=== PATIENT | male | born 1950 | race Hispanic/Latino ===

== ENCOUNTER → 2017-12-28 | Outpatient (CLI) | payer OTHER ==
[~2017-12-28] MED LIST: AEC81 PO; ATOR10 PO; CLON0.5T12 PO; FURO20TA4 PO; INSU100C6 SQ; INSU100V12 SQ; ISOS30TA6 PO; LABE200T5 PO; MENTANX PO; METF10004 PO; PREG50 PO; VALS1TAB79 PO; VITA-328 PO; [UNRECOGNIZED DRUG - REMARK]
== END | disposition home or self-care (01) ==
LOC: SHCH 09:33
PROVIDERS: ATTEND Internal Medicine Cardiovascular Disease
DX: I65.21 Occlusion and stenosis of right carotid artery (principal)
CPT/HCPCS: 93880

== ENCOUNTER → 2022-09-18 | Outpatient (CLI) | payer MEDICARE ==
[~2022-09-18] MED LIST changes: -CLON0.5T12 PO; +CLON0.5T4 PO; -ISOS30TA6 PO; +ISOS30TA92 PO; -LABE200T5 PO; +LABE200T7 PO; +METF-446 PO; -METF10004 PO; -VALS1TAB79 PO; +VALS1TAB80 PO
== END | disposition home or self-care (01) ==
LOC: RAH 12:51
PROVIDERS: ATTEND Family Medicine
DX: S40.011A Contusion of right shoulder, initial encounter (principal); W01.0XXA Fall on same level from slipping, tripping and stumbling without subsequent striking against object, initial encounter
CPT/HCPCS: 73030; 73060

== ENCOUNTER → 2023-01-05 | Outpatient (CLI) | payer MEDICARE ==
[~2023-01-05] MED LIST changes: +REGADENOSON 0.4 MG/5 ML PF SYG IVP ONE
== END | disposition home or self-care (01) ==
LOC: SHCH 07:54
PROVIDERS: ATTEND Internal Medicine Cardiovascular Disease
DX: R94.39 Abnormal result of other cardiovascular function study (principal); I49.1 Atrial premature depolarization; I25.10 Atherosclerotic heart disease of native coronary artery without angina pectoris; I65.21 Occlusion and stenosis of right carotid artery; I10 Essential (primary) hypertension; E78.2 Mixed hyperlipidemia; Z79.82 Long term (current) use of aspirin; Z79.899 Other long term (current) drug therapy
CPT/HCPCS: 78452; 96374; 93017; J2785; A9500 ×2

== ENCOUNTER → 2024-04-06 | Outpatient (CLI) | payer MEDICARE ==
[~2024-04-06] MED LIST changes: -REGADENOSON 0.4 MG/5 ML PF SYG IVP ONE
== END | disposition home or self-care (01) ==
LOC: SHCH 12:22
PROVIDERS: ATTEND Internal Medicine Cardiovascular Disease
DX: I65.21 Occlusion and stenosis of right carotid artery (principal)
CPT/HCPCS: 93880

== ENCOUNTER → 2024-07-14 | Outpatient (CLI) | payer MEDICARE ==
--- NOTE | 2024-07-14 14:42 | HMCIMG ---
SHOULDER COMP 2+VWS RT REASON: RIGHT SHOULDER PAIN TECHNIQUE: 2 views were obtained. FINDINGS: There is no evidence of fracture or dislocation. There is mild AC joint degenerative changes evidenced by narrowing. There is some loss of glenohumeral joint space is well. The soft tissues appear unremarkable. There is no evidence of a radiopaque foreign body. IMPRESSION: 1. Mild degenerative changes, no acute finding.
== END | disposition home or self-care (01) ==
LOC: RAH 13:13
PROVIDERS: ATTEND Physician Assistant
DX: M19.011 Primary osteoarthritis, right shoulder (principal); M25.511 Pain in right shoulder
CPT/HCPCS: 73030

== ENCOUNTER → 2024-08-08 | Outpatient (CLI) | payer MEDICARE ==
--- NOTE | 2024-08-08 14:17 | HMCIMG ---
MR SHOULDER RIGHT WO REASON: PAIN COMPARISON: None TECHNIQUE: Routine imaging protocol was performed in the axial, oblique sagittal and oblique coronal plane with T1, proton density, T2 and gradient recalled sequences. FINDINGS: There is a full-thickness tear of the supraspinatus portion of the rotator cuff. Proximal and distal fragments are by 2 cm. There are marked AC joint degenerative changes. There is a large inferiorly directed osteophyte. 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 There are no focal fractures. Biceps tendon appears small but otherwise unremarkable. There is no joint effusion. IMPRESSION: 1. Distracted tear supraspinatus portion rotator cuff tendon, a 2 cm gap. 2. Marked degenerative changes in the AC joint with inferior directed ossified. 3. Moderate glenohumeral joint space osteophytosis as well.
--- NOTE | 2024-08-08 15:17 | HMCIMG ---
MR SPINAL CANAL, CERV WO CON REASON: PAIN COMPARISON: None TECHNIQUE: Routine imaging protocol was performed in the sagittal and axial plane with T1, proton density, T2 and gradient pulse sequences. FINDINGS: Sagittal images show severe interspace narrowing at C3-4, C5 and C6 with moderate narrowing at C3 vertebral body alignment is normal. There are no compression fractures. There is no abnormal signal in the cervical cord. Surrounding soft tissues appear unremarkable. Axial images show widely patent spinal canal and neural foramina at C2-3. C3-4 shows diffuse moderate annular bulging. AP diameter in the midline is between 5 and 6 mm. There is moderate narrowing of both neural foramina. C4-5 shows a large to disc osteophyte complex posteriorly and to the left. AP diameter in the midline is narrowed to between 5 and 6 mm, narrowing is more pronounced in the left side of the spinal canal. There is moderate narrowing of the right sided foramen with only mild narrowing on the left. C5-6 shows a large irregular a disc osteophyte complex posteriorly and to the right. AP diameter in the midline is decreased to between 5 and 6 mm, narrowing is much more pronounced in the right half of the canal. There is moderate to marked narrowing of both neural foramina. C6-7 shows a large bulky disc or discussed by complex extending posteriorly and to the left. There is marked narrowing of the left side of the thecal sac and there is severe narrowing of the left to C6-7 neural foramen. There is only mild narrowing of the right C6-7 neural foramen. C7-T1 interspaces widely patent including both foramina. IMPRESSION: 1. Severe cervical spondylosis with multiple areas of canal and foraminal narrowing as detailed above.
== END | disposition home or self-care (01) ==
LOC: RAH 12:12
PROVIDERS: ATTEND Physical Medicine & Rehabilitation
DX: M75.121 Complete rotator cuff tear or rupture of right shoulder, not specified as traumatic (principal); M47.812 Spondylosis without myelopathy or radiculopathy, cervical region; M25.711 Osteophyte, right shoulder; M50.31 Other cervical disc degeneration, high cervical region; M48.02 Spinal stenosis, cervical region; M85.88 Other specified disorders of bone density and structure, other site; M19.011 Primary osteoarthritis, right shoulder
CPT/HCPCS: 72141; 73221